=== PATIENT | female | born 1975 | race American Indian/Alaskan Native ===

== ENCOUNTER 2018-03-11 06:09 | Day surgery (SDC) | payer OTHER ==
[2018-03-04 09:20] VITALS: BMI 28.3
[2018-03-11] MEDS ORDERED: Lactated Ringer's 1,000 ML IV ONE ×2 (07:08→09:00)
[2018-03-11] MEDS ORDERED: GELATIN SPONGE,ABSORB/PORCINE 1 EACH SPONGE TP ONE (07:14)
[2018-03-11] MEDS ORDERED: Thrombin Topical 5,000 Int Units Spray Kit ONE (07:14)
[2018-03-11] MEDS ORDERED: Bupivacaine HCl 0.5% PF (30 ml) Inj ONE (07:39)
[2018-03-11] MEDS ORDERED: MethylPREDNISolone Depo 40 mg/ml Inj ONE (07:39)
[2018-03-11 07:54] LABS: HEMOGLOBIN 10.9 g/dL (12.0-16.0); MEAN CELL VOLUME 92.2 fl (81.0-99.0); MEAN CORPUSCULAR HEMOGLOBIN 30.9 pg (27.0-31.0); MEAN CORPUSCULAR HGB CONC 33.5 g/dL (33.0-37.0); RBC 3.53 Mil/uL (3.80-5.20); WHITE BLOOD COUNT 7.7 K/uL (4.8-10.8)
[2018-03-11] MEDS ORDERED: Midazolam 2 MG/2 ML VIAL ONE (07:57)
[2018-03-11] MEDS ORDERED: Propofol 10 mg/ml Inj (20 ML) ONE ×5 (07:57→11:26)
[2018-03-11] MEDS ORDERED: Rocuronium 10 mg/ml (5 ml) ONE (07:58)
[2018-03-11] MEDS ORDERED: Phenylephrine 10 mg/ml Inj ONE (08:02)
[2018-03-11] MEDS ORDERED: Succinylcholine 200 mg/10 ml Inj IV ONE (08:08)
[2018-03-11] MEDS ORDERED: Sodium Chloride 0.9% 1,000 ML IV ONE (08:50)
[2018-03-11] MEDS ORDERED: Dexamethasone 4 mg/1 ml ONE (09:28)
[2018-03-11] MEDS ORDERED: Vancomycin 1 g Inj IVPB ONE ×2 (10:17→11:45)
[2018-03-11] MEDS ORDERED: APROTININ/FIBRINOGEN(TISSEEL) ONE (10:47)
[2018-03-11] MEDS ORDERED: Lactated Ringer's 500 ML IV ONE (12:00)
[2018-03-11] MEDS ORDERED: Bupivacaine 0.5% Inj(30mL) IJ ONE (12:15)
[2018-03-11] MEDS ORDERED: MethylPREDNISolone Depo 40 mg/ml Inj IM ONE (12:15)
[2018-03-11] MEDS ORDERED: Lactated Ringer's 1,000 ML IV SCH (12:45)
[2018-03-11 12:55] VITALS: RESP 18
[2018-03-11] MEDS: HYDROmorphone 0.5 mg/0.5 ml ISec IVP PRN ×2 (13:45→14:30)
--- NOTE | 2018-03-11 14:23 | RAD ---
Date of service: 03/11/2018 PROCEDURE: Intraoperative fluoroscopy HISTORY: ACDF COMPARISON: Not available TECHNIQUE: Intraoperative fluoroscopy was provided for anterior cervical fixation. Total time of fluoroscopy was 15.2 seconds. Cumulative dose was 1.85 mGy. FINDINGS: Multiple fluoroscopic spot films are submitted demonstrating progressive steps in anterior fixation of cervical spine at C3 and C4. IMPRESSION: Fluoroscopy provided.
[2018-03-11] MEDS ORDERED: Oxycodone/Acetaminophen 5/325 mg Tab PO PRN (14:40)
[2018-03-11 14:53] VITALS: O2SAT 98
[2018-03-11 16:05] VITALS: BP 128/76; PULSE 86; TEMP 97.8
== END 2018-03-11 16:15 | disposition home or self-care (01) ==
LOC: H.OPSURG 06:09
PROVIDERS: ATTEND Orthopaedic Surgery Orthopaedic Surgery of the Spine
DX: M50.11 Cervical disc disorder with radiculopathy, high cervical region (principal); M48.03 Spinal stenosis, cervicothoracic region; M54.12 Radiculopathy, cervical region; M54.2 Cervicalgia
CPT/HCPCS: 20937; 22551; 36415; 85027; 86850; 86900; 88304; C1713; J0330; J0690; J1030; J1100; J1170; J2250; J2370; J2405; J2704; J2765; J3010; J7030; J7120